=== PATIENT | female | born 1995 | race Caucasian/White ===

== ENCOUNTER 2018-05-27 18:57 | Emergency (ER) | payer OTHER ==
[2018-05-27 21:05] VITALS: BP 133/72
--- NOTE | 2018-05-27 21:32 | XRAY Report ---
Procedure Date: 05/27/2018 Accession Number: [id number] / [id number] Procedure: XR - Knee 3 View LT CPT Code: FULL RESULT: EXAM: LEFT KNEE RADIOGRAPHY EXAM DATE: 05/27/2018 09:08 PM. CLINICAL HISTORY: Knee pain. COMPARISON: None. TECHNIQUE: 3 views. FINDINGS: Bones: No acute fractures or suspicious bone lesions. Joints: No effusion. No subluxations. Soft Tissues: Unremarkable. IMPRESSION: Unremarkable knee radiography. [facility]
--- NOTE | 2018-05-27 21:44 | ED Physician Documentation ---
PD HPI LOWER EXT INJURY - Stated complaint Stated Complaint: KNEE PX - Chief complaint Chief Complaint: Ext Problem - History obtained from History obtained from: Patient - History of Present Illness PD HPI LOW EXT INJURY LOCATION: Left, Knee - Additional information Additional information: 23-year-old female with an ongoing left knee pain presents the emergency department for reevaluation. The patient's symptoms have been ongoing for the past 2 years. The patient's noticed increased pain recently since she has been running more. The pain is more on the medial aspect of the knee. Pain is worse with up-and-down motion of the stairs. No new injuries. No swelling. No redness. Symptoms are described as moderate. No relieving factors. Review of Systems Constitutional: denies: Fever, Chills Ears: denies: Ear pain Nose: denies: Congestion Cardiac: denies: Chest pain / pressure Respiratory: denies: Dyspnea GI: denies: Abdominal Pain Skin: denies: Rash, Lesions, Laceration (s) Musculoskeletal: reports: Joint pain Immunocompromised: denies: Chemotherapy PD PAST MEDICAL HISTORY - Past Medical History Past Medical History: No - Past Surgical History Past Surgical History: Yes - Allergies Allergies/Adverse Reactions: Allergies Allergy/AdvReac Type Severity Reaction Status Date / Time No Known Drug Allergies Allergy Verified 05/27/18 19:10 - Social History Does the pt smoke?: No Smoking Status: Never smoker Does the pt drink ETOH?: Yes Does the pt have substance abuse?: No - Immunizations Immunizations are current?: Yes - POLST Patient has POLST: No PD ED PE NORMAL - General General: Alert and oriented X 3, No acute distress - HEENT HEENT: Atraumatic, PERRL, EOMI - Derm Derm: Normal color - Extremities Extremities: No deformity - Neuro Neuro: Alert and oriented X 3, Normal speech - Psych Psych: Normal mood PD ED PE EXPANDED - Extremities Extremities: Left knee, Motor intact, Sensory intact, Vascular intact, Tendon intact, Other (The patient has full active range of motion of the left knee, the Adilia's was negative, the patient has good stability of lateral and medial movements. There is no joint effusion. No cellulitic changes. The patient is tender medially along the knee. No crepitus) Results - Vitals Vitals: Vital Signs - 24 hr 05/27/18 05/27/18 05/27/18 19:06 21:04 21:06 Temperature 36.5 C Heart Rate 66 61 Respiratory 16 16 16 Rate Blood Pressure 139/82 H 133/72 H O2 Saturation 99 100 Oxygen O2 Source Room air - Rads (name of study) L KNEE XR Radiology: Final report received (no fx) PD MEDICAL DECISION MAKING - ED course ED course: The patient has no acute injury or findings that would necessitate admission to the hospital or urgent orthopedic evaluation. The patient appears appropriate for discharge and further workup as an outpatient. Her symptoms may be suggestive of a meniscus injury. The patient understands and agrees to the plan. I discussed warning signs and recommended returning to the emergency department immediately for worsening or concerns. Based on the patient's history and physical there is no findings to suggest a DVT - Sepsis Event Vital Signs: Vital Signs - 24 hr 05/27/18 05/27/18 05/27/18 19:06 21:04 21:06 Temperature 36.5 C Heart Rate 66 61 Respiratory 16 16 16 Rate Blood Pressure 139/82 H 133/72 H O2 Saturation 99 100 Oxygen O2 Source Room air Departure - Departure Disposition: 01 Home, Self Care Clinical Impression: Knee pain Qualifiers: Chronicity: unspecified Laterality: left Qualified Code(s): M25.562 - Pain in left knee Condition: Good Instructions: Knee Pain, ED Meniscal Injury Knee Poss Follow-Up: Isabel Ramirez MD [Provider Admit Priv/Credential] - (Call to schedule a follow-up appointment) Kumar Chávez DO [Primary Care Provider] - Within 1 week (Please ask your PMD to schedule an outpatient MRI of your knee for further evaluation of your pain) Comments: Please return to the emergency department for worsening symptoms or any concerns
== END 2018-05-27 21:48 | disposition home or self-care (01) ==
LOC: ED 18:57
DX: M25.562 Pain in left knee (principal)
CPT/HCPCS: 99282; 99283

== ENCOUNTER 2018-06-13 12:05 | Outpatient (CLI) | payer OTHER ==
--- NOTE | 2018-06-13 19:19 | MRI Report ---
Procedure Date: 06/13/2018 Accession Number: [id number] / [id number] Procedure: MRI - Knee LT W/O CPT Code: FULL RESULT: EXAM: LEFT KNEE MRI WITHOUT CONTRAST EXAM DATE: 06/13/2018 12:29 PM. CLINICAL HISTORY: Unspecified internal derangement of left knee. COMPARISON: Left knee 3 views 05/27/2018. TECHNIQUE: Multiplanar, multisequence T1-weighted and fluid-sensitive sequences of the knee without contrast. Other: None. FINDINGS: Bones: Bone bruise at posterior aspect proximal medial tibia metaphysis.. Articular Cartilage: Unremarkable. Medial Meniscus: The medial meniscus is intact. Lateral Meniscus: The lateral meniscus is intact. Cruciate Ligaments: The anterior and posterior cruciate ligaments are intact. Collateral Ligaments: The medial collateral and lateral collateral ligamentous structures are intact. Tendons: The quadriceps, patellar, semimembranosus, and popliteus tendons are unremarkable. Musculature: No edema or fatty atrophy. Other: No effusion. Fluid collection gastrocnemius semimembranosus bursa measuring 0.8 x 1.6 cm in transverse dimension and 5.4 cm in height. Small dependent Agee's cyst filling defects (image 20 series 501). The medial and lateral retinacula are intact. The subcutaneous tissues and fat pads are unremarkable. IMPRESSION: 1. Negative for meniscus tear or internal derangement. 2. Bone bruise posterior aspect proximal medial tibia. 3. Small Agee's cyst 0.8 x 1.6 cm in transverse dimension and 5.4 cm in height with subtle dependent debris. [facility] MUSCULOSKELETAL RADIOLOGY SECTION
== END 2018-06-13 12:06 | disposition home or self-care (01) ==
LOC: DI 12:05
DX: M23.92 Unspecified internal derangement of left knee (principal); M71.22 Synovial cyst of popliteal space [Baker], left knee